=== PATIENT | male | born 1960 | race Caucasian/White ===

== ENCOUNTER 2017-03-22 12:36 | Inpatient (IN) | payer OTHER ==
[~2017-03-22] VITALS: Ht 177.8 cm; Wt 109.4 kg
[2017-03-22 12:38] VITALS: BP 148/95; PULSE 111; RESP 16; O2SAT 99
--- NOTE | 2017-03-22 12:55 | ED.REPORT ---
HPI-Extremity Problem Lower Date of Service Mar 22, 2017 ED Provider: History of Present Illness: have been on oral antibiotics, taking 2 medications twice a day for 14 days for right foot infection. Took them all, finished and then 3 or 4 days after finishing the antibiotics, the foot started swelling again. denies diabetes. chronic wound for a couple months. mathieu in [place] is primary care but has not seen him in years. 04/20 denies fevers or chills Nursing Notes Stated Complaint: RT FOOT INFECTION Chief Complaint: Extremity Trauma Allergies: Coded Allergies: No Known Allergies (Unverified , 03/22/17) No Active Prescriptions or Reported Meds General Time Seen by MD: 12:54 Chief Complaint Foot injury right Hx Obtained From: Patient Onset Occurred: More than a week ago... (3 weeks) Symptom Duration: Since onset Past Medical History Past Medical History Denies: Asthma, Hypertension Past Surgical History denies Smoking History Current Every Day Smoker Social History Alcohol Use: "Social" Drug Use: Denies drug use Occupation single with kids at home 27 year old son and his girlfriend and baby . Work at [employer] 03/22/2017 Ambulatory Status Independent Review of Systems Basic Review of Systems Eyes: Vision NL, No discharge : No dysuria, No frequency Psychiatric: Normal thought content Physical Exam Initial Vital Signs Vital Signs (First) Date Time Temp Pulse Resp B/P Pulse Ox O2 Delivery O2 Flow Rate FiO2 03/22/17 12:38 36.7 111 16 148/95 99 Room Air Initial VS: Reviewed, Vital signs normal General/Constitutional: Well-developed, Well-nourished Head / Eyes: Atraumatic, Normocephalic, PERRL ENT: Mucous membranes moist, Conjunctiva normal, No scleral icterus Neck: Supple, Non-tender, Full range of motion Respiratory: Breath sounds normal, Clear to auscultation, No respiratory distress Cardiovascular: Regular rate & rhythm, Heart sounds normal, Intact distal pulses Abdomen / GI: Soft, Non-tender, No guarding, No rebound, No distention Back: No CVA tenderness Lymphatic: No lymphadenopathy Upper Extremities: Vascular intact, Neuro intact, No swelling, No tenderness Skin: Warm, Dry, No cyanosis Neurologic: Alert, Oriented, Nonfocal Psychiatric: Mood/affect normal, Behavior normal, Normal thought content right lower foot has 2 cm circular wound on base of foot . Foot also has healing wound on same foot but on opposite side. Erthyma and swelling surrounding ulcer. No obvious discharge General/Constitutional: Awake, Alert, No acute distress, Well appearing, Well developed, Well hydrated, Well nourished, Cooperative Respiratory / Chest: Atraumatic, Breath sounds NL, Breath sounds = bilat, No respiratory distress Cardiovascular: Heart rate NL, Regular rhythm, Heart sounds NL, No gallop Interpretation & Diagnostics Lab Results Interpretation Result Diagram: 03/22/17 1333 03/22/17 1333 Test 03/22/17 13:33 03/22/17 14:55 White Blood Count 7.0th/mm3 (3.8-10.1) Red Blood Count 4.05mil/mm3 (4.40-5.80) Hemoglobin 14.1g/dL (13.8-17.2) Hematocrit 41.2% (41.0-50.0) Mean Corpuscular Volume 101.7fL (81-100) Mean Corpuscular Hemoglobin 34.8pg (27.0-35.0) Mean Corpuscular Hemoglobin Concent 34.2% (32.0-37.0) Red Cell Distribution Width 13.2% (12.3-15.4) Platelet Count 131bil/L (150-400) Neutrophils (%) (Auto) 58.9% (40-74) Lymphocytes (%) (Auto) 26.4% (14-46) Monocytes (%) (Auto) 6.0% (4-12) Eosinophils (%) (Auto) 8.0% (0-5) Basophils (%) (Auto) 0.6% (0-3) Erythrocyte Sedimentation Rate 36mm/hr (0-30) Sodium Level 137mEq/L (134-144) Potassium Level 4.3mEq/L (3.5-5.2) Chloride Level 102mEq/L (97-108) Carbon Dioxide Level 22mmol/L (18-29) Blood Urea Nitrogen 13mg/dL (6-24) Creatinine 0.66mg/dL (0.76-1.27) Estimat Glomerular Filtration Rate 134mL/min (>59) Glucose Level 222mg/dL (60-99) Calcium Level 8.8mg/dL (8.5-10.1) Total Bilirubin 0.4mg/dL (0.0-1.2) Aspartate Amino Transf (AST/SGOT) 21U/L (0-50) Alanine Aminotransferase (ALT/SGPT) 22U/L (0-44) Alkaline Phosphatase 88U/L (25-150) Troponin T < 0.010ug/L (0.0-0.011) C-Reactive Protein 1.8mg/dL (0.0-0.5) Total Protein 7.2g/dL (6.4-8.4) Albumin 3.6g/dL (3.4-5.0) Hold Dee Top Tube Received (Received) Urine Color Dark yellow (YELLOW) Urine Appearance Clear (CLEAR,HAZY) Urine pH 5.5 (5.0-8.0) Urine Specific [place] 1.032 (1.003-1.035) Urine Protein 100mg/dL (NEG,TRACE) Urine Glucose (UA) Negativemg/dL (NEGATIVE) Urine Ketones Negativemg/dL (NEGATIVE) Urine Occult Blood Large (NEGATIVE) Urine Nitrite Negative (NEGATIVE) Urine Bilirubin Negative (NEGATIVE) Urine Urobilinogen Normalmg/dL (NORMAL) Urine Leukocyte Esterase Negative (NEGATIVE) Urine RBC 3-10/hpf (0-2) Urine WBC 0-5/hpf (0-5) Urine Epithelial Cells Occasional/hpf (NONE-MOD) Urine Crystals None seen (NONE SEEN) Urine Bacteria None/hpf (NONE-FEW) Urine Hyaline Casts None/lpf (NONE) Urine Granular Casts None seen (NONE SEEN) Urine Waxy Casts None seen (NONE SEEN) Urine Red Blood Cell Casts None seen (NONE SEEN) Urine White Blood Cell Casts None seen (NONE SEEN) Urine Mucus Present (None Seen) Urine Trichomonas None seen (NONE SEEN) Urine Yeast None (NONE SEEN) Urinalysis Comment None Urine Culture Reflexed Not indicated ECG Interpretation ECG Interpretation: sinus tach with rate of 102 X-Ray Interpretation Xray Interpretation: !. Marked soft tissue swelling and 1.5 cm soft tissue ulcer over the plantar aspect of the right 1st metatarsophalangeal joint 2. Associated small amount of subcutaneous emphysema along the medial aspect of the right 1st metetarsal which could be related to ait tracking from the soft tissue wound with walking, although gas forming organism should still be considered. 3. No evidence of osteomyelititis US Soft Tissue/Musculoskeletal PROCEDURE: US VEINOUS LEG DUPLEX UNILATERAL, RIGHT INDICATIONS: pain and swelling ? dvt TECHNIQUE: Real-time imaging, as well as color and pulse Doppler interrogation, were performed of the lower extremity deep veins from the inguinal ligament to the popliteal fossa. COMPARISON: None. FINDINGS: The deep veins are normally compressible, and free of intraluminal thrombus. Color and pulse Doppler demonstrate normal phasic intraluminal flow. There is normal augmentation response to distal compression maneuver. IMPRESSION: No sonographic evidence of deep venous thrombus bilaterally. Dictated by: Bandar Wood M.D. on 03/22/2017 at 15:31 Approved by: Bandar Wood M.D. on 03/22/2017 at 15:32 Re-Eval/Medical Decision Med Decision/Clinical Course 56 year old male presents to the ER for increasing foot erthyma and swelling after finishing antibiotics. Patient denies DM but blood sugar is 222. A1C is added on. Consult with Dr. Marques. She presents to the department and discusses likly surgery with possible ray amputation tomorrow. Patient is admitted to the hospital and started on zosyn 4.5 mg q 6 hours. Discharge & Departure Impression: Primary Impression: Foot infection Disposition: ADMITTED TO HOSPITAL EDSupervising Provider for APC: Go Cervantes MD copies to: OTHER,PHYSICIAN Bernie Shields Mar 22, 2017 12:55
[2017-03-22] MEDS ORDERED: Piperacillin-Tazo 3.375 Gm Inj 4.5 GM in Dextrose 5% Minibag Plus 50 ML IV ONE (13:15)
[2017-03-22] MEDS ORDERED: 0.9% Sodium Chloride 1,000 ML IV ONE (13:15)
[2017-03-22 13:44] LABS: BASOPHILS % (AUTO) 0.6 % (0-3); Mean Corpuscular Hemoglobin 34.8 pg (27.0-35.0); Mean Corpuscular Volume 101.7 fL (81-100); NEUTROPHILS % (AUTO) 58.9 % (40-74); Platelet Count 131 bil/L (150-400)
[2017-03-22] MEDS ORDERED: [UNRECOGNIZED DRUG - OTHER] IV ONE ×2 (14:00)
[2017-03-22] MEDS ORDERED: PIPER TAZO IV ONE ×2 (14:00)
[2017-03-22 14:08] LABS: ERYTHROCYTE SEDIMENTATION RATE 36 mm/hr (0-30)
[2017-03-22 14:09] LABS: TROPONIN T < 0.010 ug/L (0.0-0.011)
[2017-03-22 15:11] LABS: APPEARANCE,URINE CLEAR (CLEAR,HAZY); COLOR,URINE DARK YELLOW (YELLOW); OCCULT BLOOD,URINE LARGE (NEGATIVE); PH,URINE 5.5 (5.0-8.0); UROBILINOGEN,URINE NORMAL (NORMAL)
[2017-03-22] MEDS ORDERED: Alum-Mag Hydrox-Simeth 30 mL Suspension PO PRN ×2 (15:20→19:00)
[2017-03-22] MEDS ORDERED: Ondansetron 2 mg/mL 2 mL Inj IVPUSH PRN ×2 (15:20→19:00)
[2017-03-22 15:23] VITALS: BP 139/103; PULSE 105; RESP 16; O2SAT 97
[2017-03-22 15:33] VITALS: BP 139/103; PULSE 105; RESP 16; O2SAT 97
--- NOTE | 2017-03-22 15:33 | DRSVH ---
PROCEDURE: US VEINOUS LEG DUPLEX UNILATERAL, RIGHT INDICATIONS: pain and swelling ? dvt TECHNIQUE: Real-time imaging, as well as color and pulse Doppler interrogation, were performed of the lower extr emity deep veins from the inguinal ligament to the popliteal fossa. COMPARISON: None. FINDINGS: The deep veins are normally compressible, and free of intraluminal thrombus. Color and pu lse Doppler demonstrate normal phasic intraluminal flow. There is normal augmentation response to di stal compression maneuver. IMPRESSION: No sonographic evidence of deep venous thrombus bilaterally. Dictated by: Bandar Wood M.D. on 03/22/2017 at 15:31 Approved by: Bandar Wood M.D. on 03/22/2017 at 15:32
[2017-03-22 15:42] VITALS: BP 214/110; PULSE 104; RESP 20; O2SAT 98
[2017-03-22 17:19] VITALS: BP 180/88; PULSE 105; RESP 20; O2SAT 96
--- NOTE | 2017-03-22 17:51 | PCM.CHPPOD ---
Subjective Date of service Mar 22, 2017 History of Present Illness The patient is a 56-year-old gentleman with peripheral neuropathy, denying history of diabetes, presenting today for admission from urgent care in [facility]. The provider seeing him tear noted that the patient had gas in the tissue on the x-ray, which was thought to be either communication from the underlying plantar ulcer or possibly gas forming bacteria. The patient was feeling well enough to consider not going in to be seen. However, he has failed a course of oral antibiotics, cephalexin. The infection blew up within a couple of days of stopping the antibiotics. He has had a callus on the plantar surface of his right great toe for the past few months. He lost control of it. He was placed on oral antibiotics on March 02 and referred to podiatry outpatient, but he decided not to go due to work obligations. I was contacted by urgent care today to assess the x-ray and the patient's history and I recommended admission to the hospital for IV antibiotics and surgical debridement under anesthesia. The patient states that he is having a fair amount of pain, which is unusual for him since he normally has peripheral neuropathy. He has felt flushed, but not feverish, no chills, no nausea. Allergy Allergies: Coded Allergies: No Known Allergies (Unverified , 03/22/17) Medications No Active Prescriptions or Reported Meds Past Medical History Surgeries: No Medical History: (1) Peripheral neuropathy, idiopathic (2) Hypertension (3) Foot infection Surgical History: Social History Hx Alcohol Use: Yes (social) Alcoholic Drinks Per Day: a couple drinks a week Hx Substance Use: No Smoking Status: Current Every Day Smoker Podiatry Consult Exam Vital Signs Vital Sign - Last Date Time Temp Pulse Resp B/P Pulse Ox O2 Delivery O2 Flow Rate FiO2 03/22/17 17:19 36.6 105 20 180/88 96 Room Air Result Diagram: 03/22/17 1333 03/22/17 1333 Lab Test 03/22/17 13:33 03/22/17 14:55 White Blood Count 7.0th/mm3 (3.8-10.1) Red Blood Count 4.05mil/mm3 (4.40-5.80) Hemoglobin 14.1g/dL (13.8-17.2) Hematocrit 41.2% (41.0-50.0) Mean Corpuscular Volume 101.7fL (81-100) Mean Corpuscular Hemoglobin 34.8pg (27.0-35.0) Mean Corpuscular Hemoglobin Concent 34.2% (32.0-37.0) Red Cell Distribution Width 13.2% (12.3-15.4) Platelet Count 131bil/L (150-400) Neutrophils (%) (Auto) 58.9% (40-74) Lymphocytes (%) (Auto) 26.4% (14-46) Monocytes (%) (Auto) 6.0% (4-12) Eosinophils (%) (Auto) 8.0% (0-5) Basophils (%) (Auto) 0.6% (0-3) Erythrocyte Sedimentation Rate 36mm/hr (0-30) Sodium Level 137mEq/L (134-144) Potassium Level 4.3mEq/L (3.5-5.2) Chloride Level 102mEq/L (97-108) Carbon Dioxide Level 22mmol/L (18-29) Blood Urea Nitrogen 13mg/dL (6-24) Creatinine 0.66mg/dL (0.76-1.27) Estimat Glomerular Filtration Rate 134mL/min (>59) Glucose Level 222mg/dL (60-99) Calcium Level 8.8mg/dL (8.5-10.1) Total Bilirubin 0.4mg/dL (0.0-1.2) Aspartate Amino Transf (AST/SGOT) 21U/L (0-50) Alanine Aminotransferase (ALT/SGPT) 22U/L (0-44) Alkaline Phosphatase 88U/L (25-150) Troponin T < 0.010ug/L (0.0-0.011) C-Reactive Protein 1.8mg/dL (0.0-0.5) Total Protein 7.2g/dL (6.4-8.4) Albumin 3.6g/dL (3.4-5.0) Hold Dee Top Tube Received (Received) Urine Color Dark yellow (YELLOW) Urine Appearance Clear (CLEAR,HAZY) Urine pH 5.5 (5.0-8.0) Urine Specific [place] 1.032 (1.003-1.035) Urine Protein 100mg/dL (NEG,TRACE) Urine Glucose (UA) Negativemg/dL (NEGATIVE) Urine Ketones Negativemg/dL (NEGATIVE) Urine Occult Blood Large (NEGATIVE) Urine Nitrite Negative (NEGATIVE) Urine Bilirubin Negative (NEGATIVE) Urine Urobilinogen Normalmg/dL (NORMAL) Urine Leukocyte Esterase Negative (NEGATIVE) Urine RBC 3-10/hpf (0-2) Urine WBC 0-5/hpf (0-5) Urine Epithelial Cells Occasional/hpf (NONE-MOD) Urine Crystals None seen (NONE SEEN) Urine Bacteria None/hpf (NONE-FEW) Urine Hyaline Casts None/lpf (NONE) Urine Granular Casts None seen (NONE SEEN) Urine Waxy Casts None seen (NONE SEEN) Urine Red Blood Cell Casts None seen (NONE SEEN) Urine White Blood Cell Casts None seen (NONE SEEN) Urine Mucus Present (None Seen) Urine Trichomonas None seen (NONE SEEN) Urine Yeast None (NONE SEEN) Urinalysis Comment None Urine Culture Reflexed Not indicated Exam General: Alert, Oriented X3, Cooperative Lungs: Clear to Auscultation Cardiac: Regular Rate/Rhythm, No Murmurs/Rubs/Gallops Lower Extremities: Right: Edema localized (forefoot, mainly medially, intense erythema along the dorsal medial and plantar first ray) Lower Extremity Pulses: Palpable: Left Dorsalis Pedis Left Posterior Tibal Right Dorsalis Pedis Right Posterior Tibal Podiatry WOUND : Wound Location/Description 1.5 x 1.3 cm ulcer underneath the first metatarsal, tracking medially, contiguous with a palpable crepitus along the dorsomedial aspect of the foot. The intense erythema at mid shaft of the first metatarsal. This is consistent with idiographic's findings of gas in the tissue. There is mild odor, mild purulence. Additional calluses are noted sub-fourth metatarsal on the right and the left. Overall, the patient has a cavus foot deformity, predisposing him for forefoot calluses and ulcers, given his peripheral neuropathy. Assessment & Plan Problems: (1) Foot infection Plan: The patient was informed today of my findings and the high likelihood of osteomyelitis, given history. At this point, the radiographs are more suspicious for soft tissue findings. I plan on incision and drainage with wide debridement of infected soft tissue tomorrow. I would like him to get at least 2 doses of Zosyn and before we go to the operating room, mostly to allow the soft tissue to demarcate the infection. There is a nice egress ulceration on the plantar surface and I am not worried about a sending cellulitis spreading with the presence of IV antibiotics in such a short period of time. I have discussed with the patient the potential for limb loss, partial limb loss, further ulceration risk, and already present pre-ulcerative calluses on both feet. It is important to keep him in the hospital for the duration of the treatment. After the debridement tomorrow, the patient will likely have to stay in the hospital for at least 24 hours afterwards, possibly longer. He is worried about his job and missing work hours. He was informed that returning to work sooner than recommended would most likely result in further infection and further limb loss. The patient agreed to be admitted and receive IV antibiotics and appropriate debridement tomorrow. Beyond that, he will need significant coaching for further limb salvage. Status: Acute ICD Code: L08.9 (2) Peripheral neuropathy, idiopathic Plan: Workup for diabetes is strongly recommended, especially given the appearance of his foot today. Status: Acute ICD Code: G60.9 Estrella Marques DPM Mar 22, 2017 17:51
--- NOTE | 2017-03-22 18:01 | NUR ---
Admission received report from ER and patient admitted to [facility] rm [id number] at 1530hrs today. patient c/o ulcer and cellulitis to ball of right foot. rating 8-9/10. patient reports that it's been that painful for several days. Admission process completed. Dr Salazar paged twice regarding elevated blood pressures. No admission orders as of yet. patient given PO Tylenol, somewhat effective in reducing his pain level. right foot elevated also somewhat effective. continue to monitor and await admission orders.
--- NOTE | 2017-03-22 18:40 | PCM.HPMED ---
Subjective Date of Service Mar 22, 2017 Primary Provider: Admitting Physician: Vinod Saalzar Primary Care Physician: Other,Physician Attending Physician: Vinod Salazar Chief Complaint: right foot pain and ulcer. History of Present Illness: 56 year old male with past medical history only notable for peripheral neuropathy, of unclear etiology, with patient denying history of diabetes presented to ED today from urgent care in [facility] with complaint of acutely worse right foot ulcer, erythema, swelling and pain. Patient notes that several weeks ago he developed an ulcer at the plantar surface of his right great toe after trying to remove a callus. He says he finished a course of antibiotics about a week ago and then 3-4 days after developed new and worsening erythema, swelling and pain on the medial aspect of his right foot. According to the notes by Dr. Marques patient apparently had taken a course of Cephalexin. His x-ray today was suggestive of possible gas-forming bacteria ( details as noted below) and so patient was sent to the ED where he has already been seen by podiatry consult (Dr. Marques) Per Podiatry recommendations he has been started on IV Zosyn and is being admitted to the hospitalist service for planned surgery in the morning. Patient report significant pain in his right foot but otherwise denies any fever , chills, nausea, vomiting, lightheadedness. He has not seen his primary care provider for at least 2-3 years now. Review of Systems: Constitutional: Negative, except as otherwise mentioned in the history above. Ophthalmologic: Negative, except as otherwise mentioned in the history above. Cardiovascular: Negative, except as otherwise mentioned in the history above. Respiratory: Negative, except as otherwise mentioned in the history above. Gastrointestinal: Negative, except as otherwise mentioned in the history above. Genitourinary: Negative, except as otherwise mentioned in the history above. Musculoskeletal: Negative, except as otherwise mentioned in the history above. Neurological: Negative, except as otherwise mentioned in the history above. Psychiatric: Negative, except as otherwise mentioned in the history above. Hematologic/Lymphatic: Negative, except as otherwise mentioned in the history above. Allergic/Immunologic: Negative, except as otherwise mentioned in the history above. Allergies Coded Allergies: No Known Allergies (Unverified , 03/22/17) Home Medications Denies any home meds Exam Vital Signs & I/O Vital Sign- Last 8 Hours Date Time Temp Pulse Resp B/P Pulse Ox O2 Delivery O2 Flow Rate FiO2 03/22/17 17:19 36.6 105 20 180/88 96 Room Air 03/22/17 15:42 36.6 104 20 214/110 98 Room Air 03/22/17 15:33 36.5 105 16 139/103 97 Room Air 03/22/17 15:23 36.5 105 16 139/103 97 Room Air 03/22/17 12:38 36.7 111 16 148/95 99 Room Air Lab & Micro Results Laboratory Tests Test 03/22/17 13:33 03/22/17 14:55 White Blood Count 7.0th/mm3 (3.8-10.1) Red Blood Count 4.05mil/mm3 (4.40-5.80) Hemoglobin 14.1g/dL (13.8-17.2) Hematocrit 41.2% (41.0-50.0) Mean Corpuscular Volume 101.7fL (81-100) Mean Corpuscular Hemoglobin 34.8pg (27.0-35.0) Mean Corpuscular Hemoglobin Concent 34.2% (32.0-37.0) Red Cell Distribution Width 13.2% (12.3-15.4) Platelet Count 131bil/L (150-400) Neutrophils (%) (Auto) 58.9% (40-74) Lymphocytes (%) (Auto) 26.4% (14-46) Monocytes (%) (Auto) 6.0% (4-12) Eosinophils (%) (Auto) 8.0% (0-5) Basophils (%) (Auto) 0.6% (0-3) Erythrocyte Sedimentation Rate 36mm/hr (0-30) Sodium Level 137mEq/L (134-144) Potassium Level 4.3mEq/L (3.5-5.2) Chloride Level 102mEq/L (97-108) Carbon Dioxide Level 22mmol/L (18-29) Blood Urea Nitrogen 13mg/dL (6-24) Creatinine 0.66mg/dL (0.76-1.27) Estimat Glomerular Filtration Rate 134mL/min (>59) Glucose Level 222mg/dL (60-99) Calcium Level 8.8mg/dL (8.5-10.1) Total Bilirubin 0.4mg/dL (0.0-1.2) Aspartate Amino Transf (AST/SGOT) 21U/L (0-50) Alanine Aminotransferase (ALT/SGPT) 22U/L (0-44) Alkaline Phosphatase 88U/L (25-150) Troponin T < 0.010ug/L (0.0-0.011) C-Reactive Protein 1.8mg/dL (0.0-0.5) Total Protein 7.2g/dL (6.4-8.4) Albumin 3.6g/dL (3.4-5.0) Hold Dee Top Tube Received (Received) Urine Color Dark yellow (YELLOW) Urine Appearance Clear (CLEAR,HAZY) Urine pH 5.5 (5.0-8.0) Urine Specific [place] 1.032 (1.003-1.035) Urine Protein 100mg/dL (NEG,TRACE) Urine Glucose (UA) Negativemg/dL (NEGATIVE) Urine Ketones Negativemg/dL (NEGATIVE) Urine Occult Blood Large (NEGATIVE) Urine Nitrite Negative (NEGATIVE) Urine Bilirubin Negative (NEGATIVE) Urine Urobilinogen Normalmg/dL (NORMAL) Urine Leukocyte Esterase Negative (NEGATIVE) Urine RBC 3-10/hpf (0-2) Urine WBC 0-5/hpf (0-5) Urine Epithelial Cells Occasional/hpf (NONE-MOD) Urine Crystals None seen (NONE SEEN) Urine Bacteria None/hpf (NONE-FEW) Urine Hyaline Casts None/lpf (NONE) Urine Granular Casts None seen (NONE SEEN) Urine Waxy Casts None seen (NONE SEEN) Urine Red Blood Cell Casts None seen (NONE SEEN) Urine White Blood Cell Casts None seen (NONE SEEN) Urine Mucus Present (None Seen) Urine Trichomonas None seen (NONE SEEN) Urine Yeast None (NONE SEEN) Urinalysis Comment None Urine Culture Reflexed Not indicated Microbiology 03/22/17 Blood Culture, Received Pending Result Diagram: 03/22/17 1333 03/22/17 1333 PMH 1. Peripheral neuropathy of unclear etiology Family History Denies any family history of DM, heart disease, or cancer Social History Hx Alcohol Use: Yes (social) Alcoholic Drinks Per Day: a couple drinks a week Hx Substance Use: No Hx Tobacco Use: Yes Smoking Status: Current Every Day Smoker (1 ppd) Exam Vital Signs Vital Sign - Last Date Time Temp Pulse Resp B/P Pulse Ox O2 Delivery O2 Flow Rate FiO2 03/22/17 17:19 36.6 105 20 180/88 96 Room Air General: Alert, Oriented X3, Cooperative, No Acute Distress Head: Normal Eyes: PERRLA, EOMI, Scleral Anicteric Nose: Mucous Membr Moist/[place] Mouth: Mucous Membr Moist/[place] Neck: Supple Chest & Lungs: Chest Wall Normal, Clear to auscultation & percussion Cardiovascular: Regular Rate/Rhythm Pulses: NL carotid, radial, femoral, DP, PT Abdomen: Non-tender, Non-distended, Normoactive bowel tones, Soft Extremities: No cyanosis/clubbing/edma bilat, Other (1.5 x 1.3 cm ulcer underneath the first metatarsal, tracking medially) Skin: Other (erythema of the medial aspect of the right foot. He seems to have chronic skin changes of his right and left leg as well.) Neurological: Grossly Neurologically Intact, Cranial Nerves 2-12 Intact, Normal Speech Additional Information: Psych: Calm, appropriate Lab and Diagnostics Result Diagram: 03/22/17 1333 03/22/17 1333 X-Rays, CTs and MRIs Date of Service: 03/22/17 1048 PROCEDURE: X-RAY RIGHT FOOT COMPLETE, MINIMUM THREE VIEWS ([id number]) IMPRESSION: 1. Marked soft tissue swelling over the plantar aspect of the right 1st metatarsophalangeal joint with 1.5 cm soft tissue ulcer. 2. Small amount of subcutaneous emphysema along the medial right 1st metatarsal. While this may just represent air tracking from the soft tissue ulcer, gas-forming organism might also be considered (if clinically suspected). 3. No evidence of osteomyelitis. 4. Findings discussed with LUCY Pulliam. Dictated by: Christiano Arce MD on 03/22/2017 at 11:05 Transcribed by: TL on 03/22/2017 at 15:01 Approved by: Christiano Arce MD on 03/22/2017 at 13:32 Additional Diagnostics: Date of Service: 03/22/17 1311 PROCEDURE: US VEINOUS LEG DUPLEX UNILATERAL, RIGHT IMPRESSION: No sonographic evidence of deep venous thrombus bilaterally. Dictated by: Bandar Wood M.D. on 03/22/2017 at 15:31 Approved by: Bandar Wood M.D. on 03/22/2017 at 15:32 Assessment & Plan 56 year old male with past medical history only notable for peripheral neuropathy, of unclear etiology, with patient denying history of diabetes presenting with acutely worse right foot ulcer, erythema, swelling and pain after failing outpatient antibiotic treatment and with x-ray suggestive of possible gas-forming bacteria. # Acute cellulitis with concern for possible acute necrotizing fasciitis, present on admission. - Hemodynamically appears stable and non-toxic but his foot exam is quite remarkable - Check MRSA screen - Wound culture - Followup blood cultures from ED - Appreciate podiatry consult. Will followup with recs. - Tentative plan is for debridement in AM - Continue with IV Zosyn started in ED - Will add IV Vanco and Clinda until necrotizing fasciitis ruled out - Continue with supportive care including IV Morphine prn # Hypertension. Present on admission - Denies any prior history. - ? if 2ndry to stress and pain vs undiagnosed hypertension - Pain control as noted above and if persist consider starting BP med - IV Labetalol prn for now # Elevated blood glucose on admission - Denies history of diabetes - ? if 2ndry to stress vs undiagnosed diabetes - HgA1C - Start ISS # Chronic peripheral neuropathy of unclear etiology. Present on admission - Continue with supportive care Expected length of hospital stay is greater than 2 midnights and likely 2-3 days GI Prophylaxis: Not indicated VTE Prophylaxis: Theraputic Anticoag with Warfarin Resuscitation Status: CPR: Attempt Resuscitation (discussed and verified with patient) Time spent 60 min Vinod Salazar Mar 22, 2017 18:40
[2017-03-22] MEDS ORDERED: Polyethylene Glycol (PEG) 17 Gm Powder PO PRN (19:00)
[2017-03-22] MEDS ORDERED: Glucose 40% Oral Gel 15 Gm Tube PO PRN (19:00)
[2017-03-22] MEDS: Vancomycin Dose per Pharmacist XX SCH (19:00)
[2017-03-22 19:18] LABS: APPEARANCE,URINE CLEAR (CLEAR,HAZY); COLOR,URINE YELLOW (YELLOW); OCCULT BLOOD,URINE MODERATE (NEGATIVE); UROBILINOGEN,URINE NORMAL (NORMAL)
[2017-03-22 19:38] VITALS: BP 204/112; PULSE 106; RESP 18; O2SAT 92
[2017-03-22] MEDS ORDERED: Vancomycin Inj 2,000 MG in 0.9% Sodium Chloride 500 ML IV ONE (19:45)
[2017-03-22] MEDS ORDERED: Labetalol 5 mg/mL 20 mL Inj IVPUSH ONE (20:00)
--- NOTE | 2017-03-22 20:07 | PCM.PHAPRO ---
Progress Date of Service: Mar 22, 2017 right foot pain and ulcer. Dx: acute cellulitis w/concern for possible acute necrotizing fascitis vancomcyin trough goal ~15 start vancomycin 1250mg IV q8h next trough 0330 on 03/24 per pharmacy David Lazo PharmD David Lazo Mar 22, 2017 20:06
--- NOTE | 2017-03-22 21:30 | NUR ---
Blood pressure Pt's BP was 204/112. Eva VALDEZ paged. Eva VALDEZ ordered Lisinopril 10mg PO and Labatelol 20 mg IV push, which was administered. Will continue to monitor.
[2017-03-22] MEDS: Insulin LISPRO 300 Unit/3 mL Inj SUBQ SCH (21:52)
[2017-03-22] MEDS: Clindamycin Inj 600 MG in IV Premix 1 EACH IV SCH (23:49)
[2017-03-23] VITALS (14 sets, daily range): BP systolic 134–189; BP diastolic 76–113; PULSE 96–118; RESP 16–22; O2SAT 94–98
[2017-03-23] MEDS: Piperacillin-Tazo 3.375 Gm Inj 3.375 GM in Dextrose 5% Minibag Plus 50 ML IV SCH ×3 (00:25→17:00)
[2017-03-23] MEDS: Vancomycin Inj 1,250 MG in 0.9% Sodium Chloride 250 ML IV SCH ×2 (04:49→13:55)
[2017-03-23] MEDS ORDERED: Nitroglycerin 2% 1 Gm Ointment TOPICAL ONE (04:50)
[2017-03-23 06:13] LABS: BASOPHILS % (AUTO) 0.5 % (0-3); EOSINOPHILS % (AUTO) 6.3 % (0-5); MONOCYTES % (AUTO) 6.8 % (4-12); Mean Corpuscular Hemoglobin 35.1 pg (27.0-35.0); Platelet Count 131 bil/L (150-400)
[2017-03-23 06:20] LABS: INR 0.97 ratio
[2017-03-23] MEDS ORDERED: fentaNYL-PF 50 mCg/mL 2 mL Inj ONE (07:26)
[2017-03-23] MEDS ORDERED: Propofol 10,000 mCg/mL 20 mL Inj ONE (07:26)
[2017-03-23] MEDS: Vancomycin Dose per Pharmacist XX SCH (08:30)
[2017-03-23] MEDS ORDERED: Lactated Ringer's 1,000 ML IV ONE ×3 (08:48→12:32)
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
[2017-03-23] MEDS: Insulin LISPRO 300 Unit/3 mL Inj SUBQ SCH ×4 (08:56→21:44)
[2017-03-23] MEDS: Clindamycin Inj 600 MG in IV Premix 1 EACH IV SCH ×2 (08:58→16:23)
--- NOTE | 2017-03-23 12:12 | NUR ---
to OR At 1210 hours, patient transferred to OR for I"D of right foot.
[2017-03-23] MEDS ORDERED: Lidocaine 1% 50 mL Inj INFILTRATE ONE (12:50)
[2017-03-23] MEDS ORDERED: Lactated Ringer's 500 ML IV PRN (12:51)
[2017-03-23] MEDS ORDERED: Lactated Ringer's 1,000 ML IV SCH (12:51)
[2017-03-23] MEDS ORDERED: Dexamethasone 4 mg/mL Inj IVPUSH PRN (12:55)
[2017-03-23] MEDS ORDERED: hydrALAZINE 20 mg/mL Inj IVPUSH PRN (12:55)
[2017-03-23] MEDS ORDERED: EPHEDrine Sulfate 50 mg/mL Inj IVPUSH PRN (12:55)
[2017-03-23] MEDS ORDERED: Atropine 0.4 mg/mL Inj IVPUSH PRN (12:55)
[2017-03-23] MEDS ORDERED: fentaNYL-PF 50 mCg/mL 2 mL Inj IVPUSH PRN (12:55)
[2017-03-23] MEDS ORDERED: Phenylephrine 10,000 mCg/mL Inj IVPUSH PRN (12:55)
[2017-03-23] MEDS ORDERED: Ondansetron 2 mg/mL 2 mL Inj IVPUSH PRN (12:55)
--- NOTE | 2017-03-23 13:22 | PCM.ANEP1 ---
Post Anesthesia PACU Phase 1 Assessment Vital Signs Vital Signs Date Time Temp Pulse Resp B/P Pulse Ox O2 Delivery O2 Flow Rate FiO2 03/23/17 13:20 97 18 141/78 95 Room Air 03/23/17 13:15 96 16 145/82 96 Room Air 03/23/17 13:11 36.6 96 18 146/76 96 Room Air 03/23/17 08:00 101 03/23/17 07:56 36.7 101 22 189/113 95 Room Air 03/23/17 05:57 118 03/23/17 05:52 152/109 Anesthetic Administered: MAC Level of Alertness: Awake, talking WILDE's with Equal Strength: Yes Pain: No Nausea or Vomiting: No CV Function & Hydration Stable: Yes Airway Device: Lungs: Normal Air Movement PACU Phase 2 Assessment Complications: No Follow up Care: No Patient Instructions Provided: N/A Tommy Mathews MD Mar 23, 2017 13:22
--- NOTE | 2017-03-23 13:26 | PCM.PODPO ---
Podiatry Operative Report Date of Service: Mar 22, 2017 Date of Service Mar 23, 2017 Pre Operative Diagnosis Infected right foot ulcer Post Operative Diagnosis Infected right foot ulcer Procedure Incision and drainage of dorsomedial abscess, right foot. Excision of plantar ulceration through skin and subcutaneous tissue. Surgeon Surgeon: Estrella Marques DPM Assistants: None Indication for Procedure Right plantar foot ulceration with medial abscess formation, failed course of oral cephalexin, ascending cellulitis to midfoot. Findings Medial subcutaneous crepitus, mild fat necrosis. Deep plantar ulcer with necrosis and medial tunnel. Loose sesamoid aparatus. Details of Procedure The patient was identified in the preoperative holding area and brought back to the operating room. He was placed on the operating table in supine position. The time-out protocol was coompleted and the patient's IV sedation initiated. The right foot was anesthetized with 1% Lidocaine plain. The right foot was prepped and draped in the usual aseptic manner. The first incision was made dorsomedially, overlying the palpable crepitus. A small amount of necrotic fat was encountered and suctioned out. The second incision was made in two semi- elliptical converging lines to excise the plantar ulcer and its associated callus tissue, down to the sesamoids. There was a medial tunnel towards the dorsomedial abscess/fat necrosis area that communicated with the ulcer. The granulation tissue within the ulcer was not attached to the dermis. A section of tissue was sent for microbiology. The wounds were irrigated, then packed. I extended the tunnel from the plantar ulceration to the dorsomedial incision and threaded the 1/4" Iodoform packing through it. The base of the wound was bleeding quite well. No further purulence or necrosis was identified after a saline irrigation. I cauterized the areas with active bleeding vessels, then dressed the entire foot with gauze fluffs, Kerlix, and Coban. The patient was weaned off of anesthesia and taken to the recovery room with vital signs stable and the vascular status to the right foot intact. Grafts, Implants: None Complications There were no periprocedural complications identified. Condition Stable Anesthetic Administered: MAC Drains: None Catheters: None Output, Estimated Blood Loss: 20 (ml) Blood Admin during surgery: No Surgical Cast or Splint: None Surgical Specimen Removed: Yes Specimen sent to Pathology: No Surgical Specimen description: Microbiology specimen only. Post Operative Plan This patient has a cavus foot deformity, In order to heal, he will need to be nonweightbearing and in a cast or cast boot for at least a month to allow the plantar ulcer to heal. He will need to stay hospitalized for another 24-48 hours until his drainage is controlled enough to be able to cast him. He needs strict control of his blood sugars to avoid re-infection. I will change the dressing tomorrow morning and reassess. Estrella Marques DPM Mar 23, 2017 13:26
--- NOTE | 2017-03-23 16:06 | PCM.PNMED ---
Subjective Date of Service Mar 23, 2017 Subjective Denies any new issues/complaints Exam Vital Signs Vital Sign - Last Date Time Temp Pulse Resp B/P Pulse Ox O2 Delivery O2 Flow Rate FiO2 03/23/17 13:46 36.6 96 20 169/98 98 Room Air Intake and Output 03/22/17 03/22/17 03/23/17 Cumulative From/Thru 15:00 23:00 07:00 03/22/17 12:38 - 03/23/17 05:31 Intake Total 1000 ml 1155 ml 2155 ml Output Total 300 ml 350 ml 650 ml Balance 1000 ml -300 ml 805 ml 1505 ml Intake Oral 400 ml 400 ml IV Total 1000 ml 755 ml 1755 ml Output Urine Total 300 ml 350 ml 650 ml # Bowel Movements 0 0 Exam General: Alert, Cooperative, No Acute Distress Head: Normal Eyes: Scleral Anicteric Nose: Mucous Membr Moist/[place] Mouth: Mucous Membr Moist/[place] Neck: Supple Chest & Lungs: Chest Wall Normal, Clear to auscultation bilat Cardiovascular: Regular Rate/Rhythm Pulses: NL DP, PT Abdomen: Non-tender, Non-distended, Normoactive bowel tones, Soft Extremities: No cyanosis/clubbing/edma bilat, Other (1.5 x 1.3 cm ulcer underneath the first metatarsal, tracking medially) Skin: Other (erythema of the medial aspect of the right foot. He seems to have chronic skin changes of his right and left leg as well.) Neurological: Grossly Neurologically Intact, Normal Speech Psych: Calm, appropriate IVs and Medications Medications Reviewed: Medications were reviewed in detail Lab and Diagnostics Result Diagram: 03/23/17 0545 03/23/17 0545 X-Rays, CTs and MRIs Date of Service: 03/22/17 1048 PROCEDURE: X-RAY RIGHT FOOT COMPLETE, MINIMUM THREE VIEWS ([id number]) IMPRESSION: 1. Marked soft tissue swelling over the plantar aspect of the right 1st metatarsophalangeal joint with 1.5 cm soft tissue ulcer. 2. Small amount of subcutaneous emphysema along the medial right 1st metatarsal. While this may just represent air tracking from the soft tissue ulcer, gas-forming organism might also be considered (if clinically suspected). 3. No evidence of osteomyelitis. 4. Findings discussed with LUCY Pulliam. Dictated by: Christiano Arce MD on 03/22/2017 at 11:05 Transcribed by: TL on 03/22/2017 at 15:01 Approved by: Christiano Arce MD on 03/22/2017 at 13:32 Additional Diagnostics Date of Service: 03/22/17 1311 PROCEDURE: US VEINOUS LEG DUPLEX UNILATERAL, RIGHT IMPRESSION: No sonographic evidence of deep venous thrombus bilaterally. Dictated by: Bandar Wood M.D. on 03/22/2017 at 15:31 Approved by: Bandar Wood M.D. on 03/22/2017 at 15:32 Assessment & Plan 56 year old male with past medical history only notable for peripheral neuropathy, of unclear etiology, with patient denying history of diabetes presenting with acutely worse right foot ulcer, erythema, swelling and pain after failing outpatient antibiotic treatment and with x-ray suggestive of possible gas-forming bacteria. # Acute cellulitis with concern for possible acute necrotizing fasciitis, present on admission. - Hemodynamically appears stable and non-toxic but his foot exam is quite remarkable - Check MRSA screen - Wound culture - Followup blood cultures from ED - Appreciate podiatry consult. Will followup with recs. - Tentative plan is for debridement today - Continue with IV Zosyn started in ED - Continue IV Vanco and Clinda until necrotizing fasciitis ruled out - Continue with supportive care including IV Morphine prn # Hypertension. Present on admission - Denies any prior history. - ? if 2ndry to stress and pain vs undiagnosed hypertension - Pain control as noted above and if persist consider starting BP med - IV Labetalol prn for now # Elevated blood glucose on admission - Denies history of diabetes - ? if 2ndry to stress vs undiagnosed diabetes - HgA1C - ISS # Chronic peripheral neuropathy of unclear etiology. Present on admission - Continue with supportive care Dispo: 1-2 days GI Prophylaxis: Not indicated VTE Prophylaxis: Theraputic Anticoag with Warfarin Resuscitation Status: CPR: Attempt Resuscitation (discussed and verified with patient) Vinod Salazar Mar 23, 2017 16:06
--- NOTE | 2017-03-23 18:10 | NUR ---
Post-Op patient returned from surgery A&Ox3, requesting to eat. sensations returning to right foot post-op, c/o throbbing pain. IV Morphine has been effective controlling pain. dressing had moderate drainage showing through. reinforced dressing with 4x4, Bowen and MICHELLE wrap. IV antibiotics continued. continue to monitor pain level.
[2017-03-24] VITALS (7 sets, daily range): BP systolic 165–183; BP diastolic 72–115; PULSE 89–111; RESP 18–20; O2SAT 95–97
[2017-03-24] MEDS: Clindamycin Inj 600 MG in IV Premix 1 EACH IV SCH ×3 (00:21→17:55)
[2017-03-24] MEDS: Piperacillin-Tazo 3.375 Gm Inj 3.375 GM in Dextrose 5% Minibag Plus 50 ML IV SCH ×3 (01:09→17:56)
[2017-03-24] MEDS ORDERED: Vancomycin Serum Trough XX ONE (03:30)
--- NOTE | 2017-03-24 04:00 | NUR ---
Pain Pt. reported pain in middle of shift. 2mg IV morphine given. Pt. went to sleep afterwards. Will continue to monitor.
[2017-03-24] MEDS: Insulin LISPRO 300 Unit/3 mL Inj SUBQ SCH ×3 (08:30→17:30)
[2017-03-24] MEDS: Heparin 5,000 Unit/mL Inj SUBQ SCH ×2 (10:02→17:39)
[2017-03-24] MEDS ORDERED: oxyCODONE-Acetamin 5-325 mg Tablet PO PRN (11:15)
--- NOTE | 2017-03-24 12:15 | NUR ---
Inpatient Wound Nurse Wound eval order was entered and IVDAL RN is available for wound care; however, Dr. Marques stated that she would complete her wound care with patient this day and then likely discharge. CWON RN will not see patient today unless new instructions are provided by Dr. Marques.
--- NOTE | 2017-03-24 15:49 | PCM.PNMED ---
Subjective Date of Service Mar 24, 2017 Subjective Denies any new issues/complaints Exam Vital Signs Vital Sign - Last Date Time Temp Pulse Resp B/P Pulse Ox O2 Delivery O2 Flow Rate FiO2 03/24/17 14:58 36.8 101 18 181/115 96 Room Air Intake and Output 03/23/17 03/23/17 03/24/17 Cumulative From/Thru 15:00 23:00 07:00 03/22/17 12:38 - 03/24/17 05:17 Intake Total 300 ml 1160 ml 100 ml 3715 ml Output Total 20 ml 1200 ml 1870 ml Balance 280 ml -40 ml 100 ml 1845 ml Intake Oral 400 ml 800 ml IV Total 300 ml 760 ml 100 ml 2915 ml Output Urine Total 1200 ml 1850 ml Estimated Blood Loss 20 ml 20 ml # Bowel Movements 0 0 Exam General: Alert, Cooperative, No Acute Distress Head: Normal Eyes: Scleral Anicteric Nose: Mucous Membr Moist/[place] Mouth: Mucous Membr Moist/[place] Neck: Supple Chest & Lungs: Chest Wall Normal, Clear to auscultation bilat Cardiovascular: Regular Rate/Rhythm Pulses: NL DP, PT Abdomen: Non-tender, Non-distended, Normoactive bowel tones, Soft Extremities: No cyanosis/clubbing/edema bilat. Right foot in dressing Neurological: Grossly Neurologically Intact, Normal Speech Psych: Calm, appropriate IVs and Medications Medications Reviewed: Medications were reviewed in detail Lab and Diagnostics Result Diagram: 03/23/17 0545 03/23/17 0545 X-Rays, CTs and MRIs Date of Service: 03/22/17 1048 PROCEDURE: X-RAY RIGHT FOOT COMPLETE, MINIMUM THREE VIEWS ([id number]) IMPRESSION: 1. Marked soft tissue swelling over the plantar aspect of the right 1st metatarsophalangeal joint with 1.5 cm soft tissue ulcer. 2. Small amount of subcutaneous emphysema along the medial right 1st metatarsal. While this may just represent air tracking from the soft tissue ulcer, gas-forming organism might also be considered (if clinically suspected). 3. No evidence of osteomyelitis. 4. Findings discussed with LUCY Pulliam. Dictated by: Christiano Arce MD on 03/22/2017 at 11:05 Transcribed by: TL on 03/22/2017 at 15:01 Approved by: Christiano Arce MD on 03/22/2017 at 13:32 Additional Diagnostics Date of Service: 03/22/17 1311 PROCEDURE: US VEINOUS LEG DUPLEX UNILATERAL, RIGHT IMPRESSION: No sonographic evidence of deep venous thrombus bilaterally. Dictated by: Bandar Wood M.D. on 03/22/2017 at 15:31 Approved by: Bandar Wood M.D. on 03/22/2017 at 15:32 Assessment & Plan 56 year old male with past medical history only notable for peripheral neuropathy, of unclear etiology, with patient denying history of diabetes presenting with acutely worse right foot ulcer, erythema, swelling and pain after failing outpatient antibiotic treatment and with x-ray suggestive of possible gas-forming bacteria. # Acute cellulitis with concern for possible acute necrotizing fasciitis, present on admission. - Post Incision and drainage of dorsomedial abscess, right foot and excision of plantar ulceration through skin and subcutaneous tissue on 03/23/17. - Appreciate podiatry consult. Will followup with recs. - Initially started on IV Zosyn, Vanco, and Clinda - MRSA screen negative and Vanco stopped on 03/23 - Followup pending cultures - ID consulted on 03/24. Will followup with recs - Continue with supportive care. Will stop IV Morphine and patient start on Oral Percocet in anticipation of discharge home soon (pt says wants to go home today if possible). # Hypertension. Present on admission. Ongoing and poorly controlled - Denies any prior history. - Initially improved with pain control but again poorly controlled with associated tachycardia - ? if 2ndry to stress and pain vs undiagnosed hypertension - Pain control as noted above and if persist consider starting BP med - IV Labetalol prn for now # Elevated blood glucose on admission now stable and within normal range - Denies history of diabetes - Likely 2ndry to stress - HgA1C 6 - ISS while inpatient # Chronic peripheral neuropathy of unclear etiology. Present on admission - Continue with supportive care Dispo: Will hold off on discharge today given severe hypertension and poorly controlled BP and pain GI Prophylaxis: Not indicated VTE Prophylaxis: Theraputic Anticoag with Warfarin Resuscitation Status: CPR: Attempt Resuscitation (discussed and verified with patient) Vinod Salazar Mar 24, 2017 15:49
[2017-03-24] MEDS ORDERED: Labetalol 5 mg/mL 20 mL Inj IVPUSH ONE (15:50)
--- NOTE | 2017-03-24 17:28 | NUR ---
Social Work: Screening/Readiness for Discharge/Multidisciplinary Rounds D: EMR reviewed. Pt is a 56 y/o male admitted [place] with a readmit risk score of 1 for right foot ulcer and cellulitis per H&P. Pt's insurance [facility]. Pt's NOK is mother Sweetie Gale [phone]. Pt lives at home alone in [place]. Pt discussed in multidisciplinary rounds. Per MD, pt anticipated to remain hospitalized 1 more day pending podiatry. SW discussed potential SW discharge needs. No SW needs identified, no MD orders at this time. A: Pt who is independent at baseline and currently capable of self-care, per multidisciplinary rounds P: Pt anticipated to discharge home via POV when medically stable. SW discussed potential SW discharge needs. No SW needs identified, no MD orders at this time. MIRZA Riley
--- NOTE | 2017-03-24 18:20 | PCM.DIORTH ---
Ortho Discharge Instruction Date of Service: Mar 24, 2017 Dates of Hospitalization Date of Hospital Admission Mar 22, 2017 at 14:56 Providers Admitting Physician: Vinod Salazar Primary Care Physician: Other,Physician Attending Physician: Vinod Salazar Activity Right Lower Extremity: Weight Bearing as tolerated (IN THE BOOT ONLY, OTHERWISE , HEEL-TOUCH WEIGHTBEARING WITHOUT THE BOOT.) Discharge Assist Device: Other (RIGHT WESTERN WALKER) Dressing and Incisional Care Discharge Dressing Care: Keep dressing clean, dry & intact, Change soiled dressing (DAILY, USE SALINE MOISTENED GAUZE ON TOP AND BOTTOM OF THE FOOT, THEN OVERWRAP WITH ROLLED GAUZE AND MICHELLE WRAP) Follow Up Plan Follow Up Plan YOU HAVE AN APPOINTMENT TO SEE DR. KILPATRICK AT [address] ([facility], 1ST FLOOR) ON 03/31/2017, AT 4:30PM. YOU WILL HAVE A WOUND DEBRIDEMENT (THIS HELPS REMOVE NONVIABLE TISSUE TO ALLOW PROPER HEALING). YOU WILL ALSO GET RECOMMENDATIONS FOR PROPER INSOLES TO PREVENT OTHER ULCERATIONS IN THE FUTURE. YOU NEED TO SEE YOUR PRIMARY CARE DOCTOR SOON POSSIBLE FOR HIGH BLOOD PRESSURE MANAGEMENT. TAKE YOUR ANTIBIOTICS PRESCRIBED. DO NOT SKIP DOSES. Estrella Kilpatrick DPM Mar 24, 2017 18:20
--- NOTE | 2017-03-24 18:24 | PCM.PROC ---
Procedure Note Date of Service: Mar 24, 2017 Pre Procedure Diagnosis: Open wound s/p I&D, right foot. Post Procedure Diagnosis: Open wound s/p I&D right foot. Procedure: Delayed primary closure of right foot incision Provider and Professor Of Sociology: Estrella Marques DPM Indication for Procedure: Egress wound closed to allow for easier at home care. Abscess resolved. Findings: Abscess resolved. Erythema resolved. Plantar ulcer free of new necrosis. Granulation tissue evident. Procedural Analgesia: Lidocaine 2% plain, injected periwound Procedure Details: Patient's right foot was prepped with Betadine, anesthetized locally, and the dorsomedial incisional wound closed with horizontal mattress 3-0 Prolene suture under sterile technique. Dressing consisted of saline moistened gauze over the sutures, saline moistened gauze tucked into plantar ulcer, overwrapped with Kerlix and Shankar wrap. Specimen: none Post Procedure Plan: Weightbearing as tolerated in the Western Walker only, otherwise, only heel- touch. Follow up in one week. Change dressing at home daily, as above. Estrella Marques DPM Mar 24, 2017 18:24
--- NOTE | 2017-03-24 19:45 | NUR ---
Pt AMA at 193 - At 1920 the MD was in room and this patient was informed he was unable to be discharged due to unstable hypertension. This patient removed their electronic device monitor and left the hospital. He did have IV access in his arm, it is unknown if he removed this before leaving as well. He was seen on security footage getting into his truck and driving away at 193, presumed he will not be returning to the hospital. Fryline Attendant aware. paged and next hospitalist with be paged as this occured during change of shift.
--- NOTE | 2017-03-24 20:23 | NUR ---
Hypertension. Pt hypertensive this afternoon/evening. IV labetolol ordered and given late due to med not being available. Pts. BP still 180s over 110s after 30 minutes. PO atenolol given. Podiatry in the room to change dressing around 1730. Pt. states he wants to go home. Encouraged pt. to wait untill MD can come talk with him, and that the hospitalist would be making that decision, along with podiatry input. Pt. states understanding.
--- NOTE | 2017-03-24 22:24 | CONS ---
[address] [address] CONSULTATION REPORT PATIENT: LOUISE HUANG : 1960 MR#: [id number] ADMIT: 03/22/2017 JOB ID: [id number] DATE OF SERVICE: 03/24/2017 INFECTIOUS DISEASE CONSULTATION: I kindly thank Dr. Salzaar for this timely consult. REASON FOR CONSULTATION: Right foot infection in a patient with neuropathy but no diabetes. HISTORY OF PRESENT ILLNESS: The patient is a quite healthy 56-year-old gentleman who does smoke cigarettes and has had peripheral neuropathy for five or six years. He says that this neuropathy started insidiously, was not related to any medicine or toxin he is aware of, and has been slowly progressive. He can feel pressure in his feet but not light touch, and has had some minor infections, but none severe previously. He came to the emergency department and was admitted on March 22 with a report of progressive swelling of the right foot in association with an erythematous area surrounding the ulcer on the plantar surface of the foot. The patient states for weeks he has had a shallow ulcer on the underside of his right great toe. This started when he attempted to remove a callus himself. It gradually worsened and he was seen, evaluated, and given a course of Keflex which did not help much as his foot has continued to become more erythematous and swollen. Because of that, the patient was evaluated with an x-ray which showed possible gas-forming organism in this region and so he was sent to the emergency department at [facility], subsequently admitted, and taken to the operating room for debridement by Dr. Marques. He was started on Zosyn for broad-spectrum coverage. Dr. Marques performed the procedure yesterday, during which she found some subcutaneous crepitance and fat necrosis. She also found a deep plantar ulcer and loose sesamoid apparatus. She debrided this area and has plans to review the case again today. It is her plan to eventually place him in a rather rigid device to correct some deformity of the alignment of the foot which is contributing to these ulcers in this gentleman. The patient tells me that at no time during this illness has he had significant fevers, chills or sweats, and he does not have that now. He states that his right foot pain is much improved status post debridement and the antibiotics, and he is hoping to be discharged on oral antibiotics later today. I was asked by Dr. Salazar to review the case and recommend antibiotic therapy. PAST MEDICAL HISTORY: 1. Peripheral neuropathy of unknown etiology. 2. Ongoing cigarette smoking. 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 He drinks alcohol occasionally but not much. He does smoke about a pack a day and has for a long time. FAMILY HISTORY: Negative for tuberculosis. Also negative for unexplained neuropathies. REVIEW OF SYSTEMS: Was done and the patient at this time has no headache, no visual complaint, no sore throat, cough, shortness of breath or chest pain. No nausea, vomiting, diarrhea, weight loss, fever or chills. He has very minimal pain in and around his left foot where the debridement was done. Remainder of the review of systems negative. PHYSICAL EXAMINATION: Reveals an afebrile gentleman, temperature 36.8, pulse 100, respiratory rate 18, blood pressure 181/115. He is in no acute distress. He is saturating 96% on room air. The patient is awake, alert, and affable. Head without trauma. Eyes without conjunctivitis. Oral cavity: No thrush or hairy leukoplakia. Neck is supple. No adenopathy. Lungs clear. Cardiac tones regular rate and rhythm. Abdomen is soft, nontender without organomegaly or ascites. There is no Richard catheter. No suprapubic tenderness is noted. His legs are notable for intact peripheral pulses posterior tibial. He has reasonable capillary refill. He does have significant neuropathy. He does not really have much in the way of touch sensation at all, though he does have intact sensation with respect to gross movements of his foot or direct pressure. His right foot is wrapped in a large dressing and I did not remove as Dr. Marques is going to be taking him back to re-evaluate in the next couple hours. His left foot is free of ulceration or abnormality. Neurologically, he is intact except for the peripheral neuropathy in his feet. LABORATORIES: Include white count 7000, which has been measured twice. There is no significant left shift. His platelet count is a little bit low at 131, which is of interest, and he has 6% eosinophils. Sed rate 36. CRP slightly elevated at 1.8. Creatinine 0.68. His hemoglobin A1c is 6, but interestingly his blood sugars are consistently about 130. Procalcitonin is 0. Urinalysis without pyuria. Blood cultures on admission negative, MRSA screen negative. Cultures from the foot done on March 22 and March 23 are negative. I reviewed the x-ray of the foot from admission on March 22. It shows no osteo, but there is some soft tissue swelling as well as a small amount of air along the right 1st metatarsal. IMPRESSION: This patient had a complex infection involving his right foot at the site of a callus which he had tried to debride. Contributing factors here include some deviation of the foot which Dr. Marques hopes to correct with the callus, as well as cigarette smoking and peripheral neuropathy. There is no evidence for osteomyelitis. At this point, the patient is rapidly improving on IV Zosyn and he hopes to be discharged on oral antibiotics. Given the absence of osteomyelitis, I think this is a reasonable option but he will require close followup by Podiatry. RECOMMENDATIONS: 1. Once ready for discharge, and that could be a soon as this afternoon, I would send the patient out on Augmentin 875 p.o. b.i.d. plus amoxicillin 1 g p.o. b.i.d. for about two weeks. 2. The patient will need followup by Podiatry and perhaps his primary care doctor going forward. 3. I also advised the patient to quit smoking. 4. As the patient may be discharged in the very near future, and perhaps even as early as this evening, and I am going to be leaving on a six or seven day vacation tomorrow, I am going to go ahead and sign off, but I can be reached regarding questions about this or any other patient by telephone or text.
--- NOTE | 2017-03-25 07:51 | PCM.DC.MED ---
Discharge Summary Date of Service Mar 25, 2017 Dates of Hospitalization Date of Hospital Admission Mar 22, 2017 at 14:56 Date of Discharge: Mar 25, 2017 Providers: Admitting Physician: Vinod Salazar Primary Care Physician: Other,Physician Attending Physician: Vinod Salazar Diagnosis at Time of Discharge Diagnosis at Time of Discharge PATIENT LEFT AMA # Acute cellulitis of right foot, present on admission. - Post Incision and drainage of dorsomedial abscess, right foot and excision of plantar ulceration through skin and subcutaneous tissue on 03/23/17. # Hypertension. Present on admission. Ongoing and poorly controlled # Elevated blood glucose on admission now stable and within normal range - HgA1C 6 # Chronic peripheral neuropathy of unclear etiology. Present on admission Procedures XRay, CTs & MRIs Date of Service: 03/22/17 1048 PROCEDURE: X-RAY RIGHT FOOT COMPLETE, MINIMUM THREE VIEWS ([id number]) IMPRESSION: 1. Marked soft tissue swelling over the plantar aspect of the right 1st metatarsophalangeal joint with 1.5 cm soft tissue ulcer. 2. Small amount of subcutaneous emphysema along the medial right 1st metatarsal. While this may just represent air tracking from the soft tissue ulcer, gas-forming organism might also be considered (if clinically suspected). 3. No evidence of osteomyelitis. 4. Findings discussed with LUCY Pulliam. Dictated by: Christiano Arce MD on 03/22/2017 at 11:05 Transcribed by: TL on 03/22/2017 at 15:01 Approved by: Christiano Arce MD on 03/22/2017 at 13:32 Other Diagnostics Date of Service: 03/22/17 1311 PROCEDURE: US VEINOUS LEG DUPLEX UNILATERAL, RIGHT IMPRESSION: No sonographic evidence of deep venous thrombus bilaterally. Dictated by: Bandar Wood M.D. on 03/22/2017 at 15:31 Approved by: Bandar Wood M.D. on 03/22/2017 at 15:32 Brief History 56 year old male with past medical history only notable for peripheral neuropathy, of unclear etiology, with patient denying history of diabetes presented to ED today from urgent care in [facility] with complaint of acutely worse right foot ulcer, erythema, swelling and pain. Patient notes that several weeks ago he developed an ulcer at the plantar surface of his right great toe after trying to remove a callus. He says he finished a course of antibiotics about a week ago and then 3-4 days after developed new and worsening erythema, swelling and pain on the medial aspect of his right foot. According to the notes by Dr. Marques patient apparently had taken a course of Cephalexin. His x-ray today was suggestive of possible gas-forming bacteria ( details as noted below) and so patient was sent to the ED where he has already been seen by podiatry consult (Dr. Marques) Per Podiatry recommendations he has been started on IV Zosyn and is being admitted to the hospitalist service for planned surgery in the morning. Patient report significant pain in his right foot but otherwise denies any fever , chills, nausea, vomiting, lightheadedness. He has not seen his primary care provider for at least 2-3 years now. Hospital Course # Acute cellulitis with concern for possible acute necrotizing fasciitis, present on admission. - Post Incision and drainage of dorsomedial abscess, right foot and excision of plantar ulceration through skin and subcutaneous tissue on 03/23/17. - Appreciate podiatry consult. Will followup with recs. - Initially started on IV Zosyn, Vanco, and Clinda - MRSA screen negative and Vanco stopped on 03/23 - ID consulted on 03/24. # Hypertension. Present on admission. Ongoing and poorly controlled - Initially denies any history of hypertension however on 03/24 admitted that he has a long standing history of hypertension and used to be on two different BP meds but had stopped taking them because he had ran out and had not followed with his PCP to get refills. - Initially improved with pain control but again poorly controlled with associated tachycardia - Started on Lisinopril during this hospital - On day of leaving AMA also received IV Labetolol, dose of PO Atenolol, and additional dose of Lisinopril - Had a long conversation with patient about rational and reason behind wanting to improve his BP before safely discharging him. He expressed verbal understanding and agreed to stay overnight to ensure improvement of his BP. However, according to nursing report soon after he left AMA and without notifying the nurse or me. # Elevated blood glucose on admission now stable and within normal range - Denies history of diabetes - Likely 2ndry to stress - HgA1C 6 - ISS while inpatient # Chronic peripheral neuropathy of unclear etiology. Present on admission - Continued with supportive care I visited the patient 3 times on 03/24/17. Last visit was at 7:15PM when I explained to him that his BP was still dangerously elevated despite having received IV Labetolol and he seemed to agree with staying overnight to ensure improvement of his BP. But according to nursing report patient apparently left AMA without telling anyone at around 7:35PM Exam Vital Signs (Last) Date Time Temp Pulse Resp B/P Pulse Ox O2 Delivery O2 Flow Rate FiO2 03/24/17 18:20 105 183/114 03/24/17 14:58 36.8 18 96 Room Air Test 03/22/17 13:33 03/22/17 18:45 03/23/17 05:45 Erythrocyte Sedimentation Rate 36mm/hr (0-30) Hemoglobin A1c 6.0% (4.8-5.6) Total Bilirubin 0.4mg/dL (0.0-1.2) Aspartate Amino Transf (AST/SGOT) 21U/L (0-50) Alanine Aminotransferase (ALT/SGPT) 22U/L (0-44) Alkaline Phosphatase 88U/L (25-150) Troponin T < 0.010ug/L (0.0-0.011) C-Reactive Protein 1.8mg/dL (0.0-0.5) Total Protein 7.2g/dL (6.4-8.4) Albumin 3.6g/dL (3.4-5.0) Hold Dee Top Tube Received (Received) Urine Color Yellow (YELLOW) Urine Appearance Clear (CLEAR,HAZY) Urine pH 6.0 (5.0-8.0) Urine Specific [place] 1.020 (1.003-1.035) Urine Protein 30mg/dL (NEG,TRACE) Urine Glucose (UA) Negativemg/dL (NEGATIVE) Urine Ketones Tracemg/dL (NEGATIVE) Urine Occult Blood Moderate (NEGATIVE) Urine Nitrite Negative (NEGATIVE) Urine Bilirubin Negative (NEGATIVE) Urine Urobilinogen Normalmg/dL (NORMAL) Urine Leukocyte Esterase Negative (NEGATIVE) Urine RBC 3-10/hpf (0-2) Urine WBC 0-5/hpf (0-5) Urine Epithelial Cells Occasional/hpf (NONE-MOD) Urine Crystals None seen (NONE SEEN) Urine Bacteria None/hpf (NONE-FEW) Urine Hyaline Casts None/lpf (NONE) Urine Granular Casts None seen (NONE SEEN) Urine Waxy Casts None seen (NONE SEEN) Urine Red Blood Cell Casts None seen (NONE SEEN) Urine White Blood Cell Casts None seen (NONE SEEN) Urine Mucus None seen (None Seen) Urine Trichomonas None seen (NONE SEEN) Urine Yeast None (NONE SEEN) Urinalysis Comment None Urine Culture Reflexed Not indicated White Blood Count 7.4th/mm3 (3.8-10.1) Red Blood Count 4.02mil/mm3 (4.40-5.80) Hemoglobin 14.1g/dL (13.8-17.2) Hematocrit 41.0% (41.0-50.0) Mean Corpuscular Volume 102.0fL (81-100) Mean Corpuscular Hemoglobin 35.1pg (27.0-35.0) Mean Corpuscular Hemoglobin Concent 34.4% (32.0-37.0) Red Cell Distribution Width 13.5% (12.3-15.4) Platelet Count 131bil/L (150-400) Neutrophils (%) (Auto) 66.0% (40-74) Lymphocytes (%) (Auto) 20.1% (14-46) Monocytes (%) (Auto) 6.8% (4-12) Eosinophils (%) (Auto) 6.3% (0-5) Basophils (%) (Auto) 0.5% (0-3) Prothrombin Time 10.4sec (8.1-12.5) Prothromb Time International Ratio 0.97ratio Activated Partial Thromboplast Time 28.3sec (22.8-33.0) Sodium Level 137mEq/L (134-144) Potassium Level 4.5mEq/L (3.5-5.2) Chloride Level 105mEq/L (97-108) Carbon Dioxide Level 18mmol/L (18-29) Blood Urea Nitrogen 13mg/dL (6-24) Creatinine 0.68mg/dL (0.76-1.27) Estimat Glomerular Filtration Rate 129mL/min (>59) Glucose Level 141mg/dL (60-99) Calcium Level 8.4mg/dL (8.5-10.1) Magnesium Level 2.0mg/dL (1.6-2.6) Procalcitonin 0.04ng/mL (0.00-0.08) Discharge Medications No Active Prescriptions or Reported Meds Followup Plan Disposition: left AMA copies to: Estrella Marques DPM, Masoud Mar 25, 2017 07:51
== END 2017-03-24 19:25 | disposition left against medical advice (07) | DRG 571 ==
LOC: SED 12:36 → OSC 14:41 → UNDOADMOB 14:41 → OSC 14:56
PROVIDERS: ADMIT Internal Medicine; ATTEND Internal Medicine
PROC: 0JBQ0ZZ Excision of Right Foot Subcutaneous Tissue and Fascia, Open Approach (ICD-10-PCS; principal; 2017-03-23 11:45)
PROC: 0JQQ0ZZ Repair Right Foot Subcutaneous Tissue and Fascia, Open Approach (ICD-10-PCS; 2017-03-24)
DX: L97.419 Non-pressure chronic ulcer of right heel and midfoot with unspecified severity (principal); L02.611 Cutaneous abscess of right foot; F17.200 Nicotine dependence, unspecified, uncomplicated; G60.8 Other hereditary and idiopathic neuropathies; I10 Essential (primary) hypertension; G62.9 Polyneuropathy, unspecified